=== PATIENT | female | born 1975 | race Caucasian/White ===

== ENCOUNTER 2016-09-18 12:42 | Emergency (ER) | payer MEDICAID, SELFPAY ==
[~2016-09-18] VITALS: Ht 165.1 cm; Wt 51.0 kg
[2016-09-18 13:01] VITALS: BP 121/75
[2016-09-18] MEDS ORDERED: HYDR50CA PO (13:07)
[2016-09-18] MEDS ORDERED: SERT25TA PO (13:07)
[2016-09-18 13:08] LABS: DAU SCREEN DISCLAIMER
[2016-09-18 13:15] LABS: HEMOGLOBIN 14.8 g/dL (11.7-16.4)
[2016-09-18 13:24] LABS: BLOOD UREA NITROGEN 19 mg/dL (7-18)
[2016-09-18 13:25] LABS: ACETAMINOPHEN < 2 mcg/mL (10-30)
== END 2016-09-18 14:00 | disposition home or self-care (01) ==
LOC: ED 13:13
DX: F41.1 Generalized anxiety disorder (principal); F32.9 Major depressive disorder, single episode, unspecified; F10.20 Alcohol dependence, uncomplicated
CPT/HCPCS: 36415; 80048; 80307; 80329; 82040; 85025; 99284; G0480

== ENCOUNTER 2017-07-20 15:29 | Emergency (ER) | payer MEDICAID ==
[~2017-07-20] VITALS: Ht 165.1 cm; Wt 57.9 kg
[~2017-07-20 15:29] MED LIST: HYDR50CA PO; SERT25TA PO
[2017-07-20] MEDS ORDERED: SODIUM CHLORIDE FLUSH 10ML SYR IVF ONE (16:00)
[2017-07-20] MEDS ORDERED: ONDANSETRON 2MG/ML, 2ML IVPush ONE (16:00)
[2017-07-20] MEDS ORDERED: SODIUM CHLORIDE 0.9% 1,000ML IVBOLUS ONE (16:00)
[2017-07-20] MEDS ORDERED: FAMOTIDINE 20 MG/2 ML IVP ONE (16:00)
[2017-07-20 16:07] LABS: MEAN CORPUSCULAR HGB CONC 33.9 g/dL (32.4-35.8); MEAN CORPUSCULAR VOLUME 94.3 fL (80-100); PLATELET COUNT 299 x10^3/uL (130-400); RED BLOOD COUNT 4.65 x10^6/uL (3.82-5.3); RED CELL DISTRIBUTION WIDTH 13.6 % (9.6-15.2)
[2017-07-20] MEDS ORDERED: FAMOTIDINE 20 MG/2 ML ONE (16:11)
[2017-07-20] MEDS ORDERED: MORPHINE SULFATE 4 MG/ML, 1ML ONE ×2 (16:11→17:15)
[2017-07-20] MEDS ORDERED: ONDANSETRON 2MG/ML, 2ML ONE (16:11)
[2017-07-20 16:19] LABS: ALANINE AMINOTRANSFERASE 20 U/L (12-78); ALBUMIN 4.2 g/dL (3.4-5.0); ANION GAP 11 mmol/L (5-15); CALCIUM 8.8 mg/dL (8.5-10.1); CHLORIDE 103 mmol/L (98-107); CREATININE 0.79 mg/dL (0.55-1.02)
[2017-07-20] MEDS: MORPHINE SULFATE 4 MG/ML, 1ML IVPush PRN ×2 (16:19→17:17)
[2017-07-20 16:21] LABS: ALKALINE PHOSPHATASE 57 U/L (45-117); BILIRUBIN,TOTAL 0.3 mg/dL (0.2-1.0); TOTAL PROTEIN 8.3 g/dL (6.4-8.2)
[2017-07-20 16:40] VITALS: BP 128/88
[2017-07-20 16:47] LABS: MD YES
[2017-07-20 16:51] LABS: BANDS%(MANUAL) 1 % (0-7); BASOS% (MANUAL) 1 % (0-1); EOS% (MANUAL) 1 % (1-7); LYMPH#(MANUAL) 3.82 x10^3/uL (1-3.4); LYMPHS% (MANUAL) 19 % (22-44); MONOS#(MANUAL) 1.41 x10^3/uL (0.3-2.7); MONOS% (MANUAL) 7 % (2-9); REACTIVE LYMPHS % (MANUAL) 2 % (0-0); SEG#(MANUAL) 13.87 x10^3/uL (1.8-6.8); SEGS% (MANUAL) 69 % (42-75)
[2017-07-20 16:52] LABS: <PLATELET ESTIMATE> ADEQUATE; <PLT MORPHOLOGY> NORMAL PLT MORPH; <RBC MORPHOLOGY> NORMAL
[2017-07-20 16:55] LABS: CULTURE INDICATED? YES; MICROSCOPIC INDICATED
[2017-07-20] MEDS ORDERED: morphine SULFATE 10 MG/ML, 1ML ONE (18:47)
[2017-07-20] MEDS ORDERED: MORPHINE SULFATE 4 MG/ML, 1ML IVPush PRN (19:00)
[2017-07-20] MEDS ORDERED: OMNIPAQUE 350 MG/ML, 150 ML BOTTLE ONE (19:46)
== END 2017-07-20 20:54 | disposition home or self-care (01) ==
LOC: ED 19:04
DX: K56.1 Intussusception (principal); Z90.710 Acquired absence of both cervix and uterus
CPT/HCPCS: 36415; 74177; 74250; 80053; 81001; 83690; 85025; 87077; 87086; 96361; 96374; 96375; 96376; 99285; J2405; J7030; Q9967; 87186; S0028

== ENCOUNTER 2017-08-09 14:43 | Inpatient (IN) | payer MEDICAID ==
[~2017-08-09] VITALS: Ht 165.1 cm; Wt 63.1 kg
[2017-08-09] MEDS ORDERED: SODIUM CHLORIDE 0.9% 1,000ML IVBOLUS ONE (15:00)
[2017-08-09] MEDS ORDERED: METOCLOPRAMIDE 5 MG/ML, 2ML IVPush ONE (15:00)
[2017-08-09] MEDS ORDERED: FAMOTIDINE 20 MG/2 ML IVP ONE (15:00)
[2017-08-09] MEDS ORDERED: MORPHINE SULFATE 4 MG/ML, 1ML IVPush PRN (15:00)
[2017-08-09] MEDS ORDERED: DIPHENHYDRAMINE 50 MG/ML, 1ML IVPush ONE (15:00)
[2017-08-09] MEDS ORDERED: SODIUM CHLORIDE FLUSH 10ML SYR IVF ONE (15:00)
[2017-08-09] MEDS ORDERED: DIPHENHYDRAMINE 50 MG/ML, 1ML ONE (15:18)
[2017-08-09] MEDS ORDERED: MORPHINE SULFATE 4 MG/ML, 1ML ONE (15:18)
[2017-08-09] MEDS ORDERED: FAMOTIDINE 20 MG/2 ML ONE (15:19)
[2017-08-09] MEDS ORDERED: METOCLOPRAMIDE 5 MG/ML, 2ML ONE (15:19)
[2017-08-09 15:24] LABS: BASOPHILS % (AUTO) 1 % (0-1); EOSINOPHILS # (AUTO) 0.25 x10^3/uL (0-0.4); EOSINOPHILS % (AUTO) 3 % (1-7); LYMPHOCYTES # (AUTO) 4.15 x10^3/uL (1-3.4); LYMPHOCYTES % (AUTO) 46 % (22-44); MD NO; MEAN CORPUSCULAR HEMOGLOBIN 32.3 pg (27.0-34.8); MEAN CORPUSCULAR HGB CONC 33.7 g/dL (32.4-35.8); MEAN CORPUSCULAR VOLUME 95.9 fL (80-100); MEAN PLATELET VOLUME 7.8 fL (7.4-10.4); MONOCYTES # (AUTO) 0.69 x10^3/uL (0.2-0.8); MONOCYTES % (AUTO) 8 % (2-9); NEUTROPHILS # (AUTO) 3.91 x10^3/uL (1.8-6.8); NEUTROPHILS % (AUTO) 43 % (42-75); PLATELET COUNT 379 x10^3/uL (130-400); RED BLOOD COUNT 4.56 x10^6/uL (3.82-5.3)
[2017-08-09 15:28] LABS: INTERNATIONAL NORMALIZED RATIO 0.96 (0.93-1.1); PROTHROMBIN TIME 9.9 Seconds (9.6-11.5)
[2017-08-09 15:32] LABS: ALBUMIN 4.2 g/dL (3.4-5.0); ANION GAP 7 mmol/L (5-15); CALCIUM 8.6 mg/dL (8.5-10.1); CHLORIDE 108 mmol/L (98-107)
[2017-08-09 15:34] LABS: AMPHETAMINE SCREEN, URINE Negative (Negative); BARBITURATE SCREEN, URINE Negative (Negative); BENZODIAZEPINE SCREEN, URINE Negative (Negative); CANNABINOID SCREEN, URINE Positive (Negative); COCAINE SCREEN, URINE Negative (Negative); METHADONE SCREEN, URINE Negative (Negative); OPIATE SCREEN, URINE Negative (Negative)
[2017-08-09 15:35] LABS: ALANINE AMINOTRANSFERASE 35 U/L (12-78); ALKALINE PHOSPHATASE 56 U/L (45-117); BILIRUBIN,TOTAL 0.2 mg/dL (0.2-1.0); CREATININE 0.82 mg/dL (0.55-1.02); TOTAL PROTEIN 7.8 g/dL (6.4-8.2)
[2017-08-09] MEDS ORDERED: OMNIPAQUE 350 MG/ML, 100ML BOTTLE ONE (16:19)
[2017-08-09] MEDS ORDERED: MIDAZOLAM 1 MG/ML, 2ML ONE ×2 (18:35→20:31)
[2017-08-09] MEDS ORDERED: FENTANYL PF 250 MCG/5ML ONE (18:36)
[2017-08-09 18:40] LABS: MICROSCOPIC NOT IND
[2017-08-09 18:47] LABS: CULTURE INDICATED? NO
[2017-08-09] MEDS ORDERED: MIDAZOLAM 1 MG/ML, 2ML IV PRN (19:00)
[2017-08-09] MEDS ORDERED: FENTANYL PF 100 MCG/2ML IV PRN (19:00)
[2017-08-09] MEDS ORDERED: OXYcodone 5 MG/5 ML ORAL.SOL UDC PO PRN (19:00)
[2017-08-09] MEDS ORDERED: DIAZEPAM 5 MG/ML, 2ML IVPush PRN (19:00)
[2017-08-09] MEDS ORDERED: ALBUTEROL/IPRATROPIUM 2.5MG/0.5MG, 3 ML NPPB PRN (19:00)
[2017-08-09] MEDS ORDERED: hydrALAzine 20 MG/ML, 1ML IV PRN (19:00)
[2017-08-09] MEDS ORDERED: MEPERIDINE/PF 25MG/0.5ML IVPush PRN (19:00)
[2017-08-09] MEDS ORDERED: PROMETHAZINE 25 MG/ML, 1ML IV PRN (19:00)
[2017-08-09] MEDS ORDERED: LABETALOL 5MG/ML, 20ML IV PRN (19:00)
[2017-08-09] MEDS ORDERED: ACETAMINOPHEN 325 MG TABLET PO PRN (19:00)
[2017-08-09] MEDS ORDERED: ONDANSETRON 2MG/ML, 2ML IVPush PRN (19:00)
[2017-08-09] MEDS ORDERED: DEXAMETHASONE 4 MG/ML, 1ML ONE (19:17)
[2017-08-09] MEDS ORDERED: CEFAZOLIN 1,000 MG ONE (19:17)
[2017-08-09] MEDS ORDERED: CEFOTETAN PMX 1GM/50ML 50 ML ONE (19:17)
[2017-08-09] MEDS ORDERED: PROPOFOL 10 MG/ML, 20ML ONE (19:17)
[2017-08-09] MEDS ORDERED: ROCURONIUM 10 MG/ML,10ML ONE (19:17)
[2017-08-09] MEDS ORDERED: GLYCOPYRROLATE 0.2MG/1ML, 5ML ONE (19:17)
[2017-08-09] MEDS ORDERED: NEOSTIGMINE 1 MG/ML, 10ML ONE (19:17)
[2017-08-09] MEDS ORDERED: ONDANSETRON 2MG/ML, 2ML ONE (19:17)
[2017-08-09] MEDS ORDERED: SUCCINYLCHOLINE 20 MG/ML, 10ML ONE (19:17)
[2017-08-09] MEDS ORDERED: HYDROmorphone 2 MG/ML, 1ML ONE ×2 (19:33→20:15)
[2017-08-09] MEDS ORDERED: KETOROLAC 30 MG/1 ML ONE (19:35)
[2017-08-09] MEDS ORDERED: ACETAMINOPHEN 650 MG/20.3 ML UDC ONE (20:03)
[2017-08-09] MEDS ORDERED: FENTANYL PF 100 MCG/2ML ONE (20:03)
[2017-08-09] MEDS ORDERED: OXYcodone 5 MG/5 ML ORAL.SOL UDC ONE (20:03)
[2017-08-09] MEDS: HYDROmorphone 1 MG/ML, 1ML IV PRN ×2 (20:19→20:28)
[2017-08-09] MEDS: D5%-0.45NACL+KCL 20MEQ 1,000 ML IV SCH (22:50)
[2017-08-09] MEDS: FAMOTIDINE 20 MG/2 ML IVPush SCH (22:50)
[2017-08-09 22:57] VITALS: BP 120/76
[2017-08-09] MEDS: POTASSIUM CHLORIDE 20 MEQ, MAGNESIUM SULFATE 1 GM, FOLIC ACID 1 MG, MVI ADULT 10 ML in ... IV SCH (23:30)
[2017-08-09] MEDS: THIAMINE MC SCH (23:45)
[2017-08-10 00:02] VITALS: BP 124/64
[2017-08-10] MEDS: ONDANSETRON 2MG/ML, 2ML IVPush PRN ×3 (03:58→15:36)
[2017-08-10 04:34] VITALS: BP 128/81
[2017-08-10] MEDS: D5%-0.45NACL+KCL 20MEQ 1,000 ML IV SCH ×3 (04:52→17:48)
[2017-08-10 05:23] LABS: MEAN CORPUSCULAR HEMOGLOBIN 32.8 pg (27.0-34.8); MEAN CORPUSCULAR HGB CONC 34.4 g/dL (32.4-35.8); MEAN CORPUSCULAR VOLUME 95.5 fL (80-100); PLATELET COUNT 325 x10^3/uL (130-400); RED BLOOD COUNT 3.97 x10^6/uL (3.82-5.3); RED CELL DISTRIBUTION WIDTH 14.1 % (9.6-15.2)
[2017-08-10 05:27] LABS: ANION GAP 9 mmol/L (5-15); CALCIUM 7.9 mg/dL (8.5-10.1); CHLORIDE 109 mmol/L (98-107)
[2017-08-10 05:29] LABS: CREATININE 0.92 mg/dL (0.55-1.02)
[2017-08-10 06:04] LABS: BASOPHILS # (AUTO) 0.05 x10^3/uL (0-0.1); BASOPHILS % (AUTO) 0 % (0-1); EOSINOPHILS % (AUTO) 0 % (1-7); LYMPHOCYTES # (AUTO) 0.66 x10^3/uL (1-3.4); LYMPHOCYTES % (AUTO) 3 % (22-44); MD SCAN; MONOCYTES # (AUTO) 0.98 x10^3/uL (0.2-0.8); MONOCYTES % (AUTO) 5 % (2-9); NEUTROPHILS # (AUTO) 19.13 x10^3/uL (1.8-6.8); NEUTROPHILS % (AUTO) 92 % (42-75)
[2017-08-10] MEDS: CEFOTETAN PMX 1GM/50ML 50 ML IVPB SCH ×2 (06:13→18:04)
[2017-08-10 08:08] VITALS: BP 109/73
[2017-08-10] MEDS: THIAMINE MC SCH ×3 (08:13→23:45)
[2017-08-10] MEDS: POTASSIUM CHLORIDE 20 MEQ, MAGNESIUM SULFATE 1 GM, FOLIC ACID 1 MG, MVI ADULT 10 ML in ... IV SCH (08:13)
[2017-08-10] MEDS: FAMOTIDINE 20 MG/2 ML IVPush SCH ×2 (08:14→20:45)
[2017-08-10] MEDS: NICOTINE 14MG/24 HR PATCH.TD24 TD SCH (08:33)
[2017-08-10 13:53] VITALS: BP 135/74
[2017-08-10 20:15] VITALS: BP 116/80
[2017-08-10] MEDS ORDERED: LOPERAMIDE 2 MG CAPSULE PO ONE (22:30)
[2017-08-11] MEDS: D5%-0.45NACL+KCL 20MEQ 1,000 ML IV SCH ×4 (00:09→23:08)
[2017-08-11 02:24] VITALS: BP 111/78
[2017-08-11 05:07] LABS: BASOPHILS # (AUTO) 0.03 x10^3/uL (0-0.1); BASOPHILS % (AUTO) 0 % (0-1); EOSINOPHILS # (AUTO) 0.07 x10^3/uL (0-0.4); EOSINOPHILS % (AUTO) 1 % (1-7); LYMPHOCYTES # (AUTO) 1.73 x10^3/uL (1-3.4); LYMPHOCYTES % (AUTO) 17 % (22-44); MD NO; MEAN CORPUSCULAR HEMOGLOBIN 32.2 pg (27.0-34.8); MEAN CORPUSCULAR HGB CONC 33.8 g/dL (32.4-35.8); MEAN CORPUSCULAR VOLUME 95.3 fL (80-100); MEAN PLATELET VOLUME 8.2 fL (7.4-10.4); MONOCYTES # (AUTO) 0.48 x10^3/uL (0.2-0.8); MONOCYTES % (AUTO) 5 % (2-9); NEUTROPHILS # (AUTO) 7.68 x10^3/uL (1.8-6.8); NEUTROPHILS % (AUTO) 77 % (42-75); PLATELET COUNT 253 x10^3/uL (130-400); RED BLOOD COUNT 3.58 x10^6/uL (3.82-5.3)
[2017-08-11] MEDS: POTASSIUM CHLORIDE 20 MEQ, MAGNESIUM SULFATE 1 GM, FOLIC ACID 1 MG, MVI ADULT 10 ML in ... IV SCH (06:40)
[2017-08-11 07:23] VITALS: BP 127/78
[2017-08-11] MEDS: THIAMINE MC SCH ×3 (08:33→23:45)
[2017-08-11] MEDS: FAMOTIDINE 20 MG/2 ML IVPush SCH ×2 (08:38→20:28)
[2017-08-11] MEDS: NICOTINE 14MG/24 HR PATCH.TD24 TD SCH (08:38)
[2017-08-11] MEDS: ONDANSETRON 2MG/ML, 2ML IVPush PRN ×2 (11:29→21:21)
[2017-08-11 13:15] VITALS: BP 112/77
[2017-08-11 20:15] VITALS: BP 120/75
[2017-08-12 00:39] VITALS: BP 100/66
[2017-08-12] MEDS: D5%-0.45NACL+KCL 20MEQ 1,000 ML IV SCH ×3 (04:40→19:57)
[2017-08-12] MEDS: POTASSIUM CHLORIDE 20 MEQ, MAGNESIUM SULFATE 1 GM, FOLIC ACID 1 MG, MVI ADULT 10 ML in ... IV SCH (05:22)
[2017-08-12] MEDS: THIAMINE MC SCH ×3 (07:42→23:45)
[2017-08-12] MEDS: ONDANSETRON 2MG/ML, 2ML IVPush PRN (08:27)
[2017-08-12] MEDS: FAMOTIDINE 20 MG/2 ML IVPush SCH ×2 (09:00→22:01)
[2017-08-12] MEDS: NICOTINE 14MG/24 HR PATCH.TD24 TD SCH (09:00)
[2017-08-12 09:11] VITALS: BP 95/62
[2017-08-12 13:24] VITALS: BP 109/57
[2017-08-12] MEDS: OXYcodone/APAP 7.5/325MG TABLET PO PRN ×4 (16:00→23:48)
[2017-08-12 20:23] VITALS: BP 107/73
[2017-08-13 00:53] VITALS: BP 114/72
[2017-08-13] MEDS: OXYcodone/APAP 7.5/325MG TABLET PO PRN ×4 (05:42→23:40)
[2017-08-13] MEDS: THIAMINE MC SCH ×3 (07:45→20:51)
[2017-08-13 07:52] VITALS: BP 96/64
[2017-08-13] MEDS: FAMOTIDINE 20 MG/2 ML IVPush SCH (09:14)
[2017-08-13] MEDS: NICOTINE 14MG/24 HR PATCH.TD24 TD SCH (09:14)
[2017-08-13] MEDS: D5%-0.45NACL+KCL 20MEQ 1,000 ML IV SCH (09:38)
[2017-08-13 13:23] VITALS: BP 102/66
[2017-08-13 18:46] VITALS: BP 109/71
[2017-08-13] MEDS ORDERED: FAMOTIDINE 20 MG TABLET PO ONE (21:00)
[2017-08-14 02:40] VITALS: BP 102/65
[2017-08-14] MEDS: OXYcodone/APAP 7.5/325MG TABLET PO PRN (05:26)
[2017-08-14] MEDS: THIAMINE MC SCH (07:16)
[2017-08-14 08:33] VITALS: BP 111/67
[2017-08-14] MEDS: NICOTINE 14MG/24 HR PATCH.TD24 TD SCH (09:12)
[2017-08-14] MEDS ORDERED: NICO-486 TD (10:06)
[2017-08-14] MEDS ORDERED: OXYC-306 PO (10:06)
[2017-08-14] MEDS ORDERED: FAMO10TA31 PO (10:07)
== END 2017-08-14 10:40 | disposition home or self-care (01) | DRG 342 ==
LOC: ED 16:26 → EDIP 18:07 → 4NOR 21:48 → DCLOUNGE 08-14 10:24
PROVIDERS: ADMIT Surgery; ATTEND Surgery
PROC: 0DBA0ZX Excision of Jejunum, Open Approach, Diagnostic (ICD-10-PCS; 2017-08-09)
PROC: 0DTJ0ZZ Resection of Appendix, Open Approach (ICD-10-PCS; principal; 2017-08-09 18:30)
DX: R10.0 Acute abdomen (principal); J98.11 Atelectasis; F12.90 Cannabis use, unspecified, uncomplicated; R63.4 Abnormal weight loss; F17.210 Nicotine dependence, cigarettes, uncomplicated; Z85.43 Personal history of malignant neoplasm of ovary; Z87.11 Personal history of peptic ulcer disease; Z90.710 Acquired absence of both cervix and uterus; Z68.23 Body mass index [BMI] 23.0-23.9, adult
CPT/HCPCS: 36415; 71045; 74177; 80048; 80053; 80307; 81003; 83605; 83690; 85025; 85610; 85730; 88304; 88305; 96374; 96375; J0690; J1100; J1170; J1885; J2250; J2270; J2405; J2704; J2710; J3010; J3475; J3480; J3490; Q9967; C1765; J0330; J1200; J2765; J7030; J7121; S0028; S0074

== ENCOUNTER 2017-10-29 16:41 | Emergency (ER) | payer MEDICAID ==
[~2017-10-29] VITALS: Ht 165.1 cm; Wt 56.7 kg
[~2017-10-29 16:41] MED LIST changes: +FAMO10TA31 PO; +NICO-486 TD; +OXYC-306 PO
[2017-10-29] MEDS ORDERED: SODIUM CHLORIDE 0.9% 1,000ML IVBOLUS ONE (17:00)
[2017-10-29] MEDS ORDERED: ONDANSETRON 2MG/ML, 2ML IVPush ONE (17:00)
[2017-10-29] MEDS ORDERED: MAALOX/HYOSCYAMINE/LIDOCAINE 45 ML BTL PO ONE (17:00)
[2017-10-29] MEDS ORDERED: FAMOTIDINE 20 MG/2 ML IVP ONE (17:00)
[2017-10-29] MEDS ORDERED: SODIUM CHLORIDE FLUSH 10ML SYR IVF ONE (17:00)
[2017-10-29 17:52] LABS: BASOPHILS # (AUTO) 0.14 x10^3/uL (0-0.1); BASOPHILS % (AUTO) 1 % (0-1); EOSINOPHILS # (AUTO) 0.23 x10^3/uL (0-0.4); EOSINOPHILS % (AUTO) 2 % (1-7); LYMPHOCYTES # (AUTO) 2.51 x10^3/uL (1-3.4); LYMPHOCYTES % (AUTO) 22 % (22-44); MD NO; MEAN CORPUSCULAR HEMOGLOBIN 31.2 pg (27.0-34.8); MEAN CORPUSCULAR HGB CONC 33.7 g/dL (32.4-35.8); MEAN CORPUSCULAR VOLUME 92.6 fL (80-100); MEAN PLATELET VOLUME 8.7 fL (7.4-10.4); MONOCYTES # (AUTO) 0.58 x10^3/uL (0.2-0.8); MONOCYTES % (AUTO) 5 % (2-9); NEUTROPHILS # (AUTO) 7.88 x10^3/uL (1.8-6.8); NEUTROPHILS % (AUTO) 70 % (42-75); PLATELET COUNT 289 x10^3/uL (130-400); RED CELL DISTRIBUTION WIDTH 13.5 % (9.6-15.2)
[2017-10-29 18:03] LABS: ALBUMIN 3.9 g/dL (3.4-5.0); ANION GAP 6 mmol/L (5-15); CALCIUM 9.3 mg/dL (8.5-10.1); CHLORIDE 108 mmol/L (98-107)
[2017-10-29 18:05] LABS: MICROSCOPIC NOT IND
[2017-10-29 18:06] LABS: ALANINE AMINOTRANSFERASE 16 U/L (12-78); ALKALINE PHOSPHATASE 42 U/L (45-117); BILIRUBIN,TOTAL 0.5 mg/dL (0.2-1.0); CREATININE 0.91 mg/dL (0.55-1.02); TOTAL PROTEIN 7.5 g/dL (6.4-8.2)
[2017-10-29 18:16] LABS: CULTURE INDICATED? NO
[2017-10-29] MEDS ORDERED: MAALOX/HYOSCYAMINE/LIDOCAINE 45 ML BTL ONE (18:22)
[2017-10-29] MEDS ORDERED: ONDANSETRON ODT 4 MG ONE (18:22)
[2017-10-29] MEDS ORDERED: PANTOPRAZOLE 40 MG IV ONE (18:22)
[2017-10-29] MEDS ORDERED: MORPHINE SULFATE 4 MG/ML, 1ML ONE (18:22)
[2017-10-29] MEDS ORDERED: ONDANSETRON ODT 4 MG PO ONE (18:30)
[2017-10-29] MEDS ORDERED: MORPHINE SULFATE 4 MG/ML, 1ML IVPush ONE (18:30)
[2017-10-29] MEDS ORDERED: OMNIPAQUE 350 MG/ML, 100ML BOTTLE ONE (18:41)
[2017-10-29 19:48] VITALS: BP 107/64
[2017-10-30] MEDS ORDERED: PANTOPRAZOLE 40 MG IV IVPush SCH (09:00)
== END 2017-10-29 20:13 | disposition home or self-care (01) ==
LOC: ED 18:16
DX: K27.3 Acute peptic ulcer, site unspecified, without hemorrhage or perforation (principal); Z90.710 Acquired absence of both cervix and uterus; F17.200 Nicotine dependence, unspecified, uncomplicated
CPT/HCPCS: 36415; 74021; 74177; 80053; 81003; 83690; 85025; 96361; 96374; 96375; 99285; C9113; J7030; Q0162; Q9967

== ENCOUNTER 2017-12-15 12:07 | Emergency (ER) | payer MEDICAID ==
[~2017-12-15] VITALS: Ht 165.1 cm; Wt 52.6 kg
[2017-12-15 12:13] VITALS: BP 146/94
[2017-12-15] MEDS ORDERED: KETOROLAC 30 MG/1 ML IM ONE (12:30)
[2017-12-15] MEDS ORDERED: KETOROLAC 30 MG/1 ML ONE (12:40)
[2017-12-15 13:35] LABS: MICROSCOPIC NOT IND
[2017-12-15 13:39] LABS: CULTURE INDICATED? NO
== END 2017-12-15 14:02 | disposition home or self-care (01) ==
LOC: ED 13:56
DX: S22.41XA Multiple fractures of ribs, right side, initial encounter for closed fracture (principal); F10.20 Alcohol dependence, uncomplicated; F17.200 Nicotine dependence, unspecified, uncomplicated; Z90.710 Acquired absence of both cervix and uterus; Z90.89 Acquired absence of other organs; W17.89XA Other fall from one level to another, initial encounter; Y93.89 Activity, other specified; Y92.098 Other place in other non-institutional residence as the place of occurrence of the external cause; Y99.8 Other external cause status
CPT/HCPCS: 81003; 99285

== ENCOUNTER 2018-01-19 00:52 | Emergency (ER) | payer MEDICAID ==
[~2018-01-19] VITALS: Ht 165.1 cm; Wt 60.0 kg
[2018-01-19] MEDS ORDERED: LIDOCAINE-MPF 1%, 2ML INFIL ONE (01:30)
[2018-01-19 01:40] LABS: BASOPHILS # (AUTO) 0.05 x10^3/uL (0-0.1); BASOPHILS % (AUTO) 1 % (0-1); EOSINOPHILS # (AUTO) 0.17 x10^3/uL (0-0.4); EOSINOPHILS % (AUTO) 2 % (1-7); LYMPHOCYTES # (AUTO) 2.19 x10^3/uL (1-3.4); LYMPHOCYTES % (AUTO) 23 % (22-44); MD NO; MEAN CORPUSCULAR HEMOGLOBIN 31.6 pg (27.0-34.8); MEAN CORPUSCULAR HGB CONC 34.2 g/dL (32.4-35.8); MEAN CORPUSCULAR VOLUME 92.4 fL (80-100); MONOCYTES # (AUTO) 0.39 x10^3/uL (0.2-0.8); MONOCYTES % (AUTO) 4 % (2-9); NEUTROPHILS # (AUTO) 6.77 x10^3/uL (1.8-6.8); NEUTROPHILS % (AUTO) 71 % (42-75); PLATELET COUNT 312 x10^3/uL (130-400); RED BLOOD COUNT 4.08 x10^6/uL (3.82-5.3); RED CELL DISTRIBUTION WIDTH 13.9 % (9.6-15.2)
[2018-01-19] MEDS ORDERED: LIDOCAINE-MPF 1%, 2ML ONE (01:41)
[2018-01-19 01:53] LABS: ALANINE AMINOTRANSFERASE 19 U/L (12-78); ANION GAP 7 mmol/L (5-15); CALCIUM 8.7 mg/dL (8.5-10.1); CHLORIDE 111 mmol/L (98-107); CREATININE 0.91 mg/dL (0.55-1.02); SALICYLATE LEVEL 4.6 mg/dL (2.8-20.0)
[2018-01-19 01:55] LABS: ALKALINE PHOSPHATASE 47 U/L (45-117); BILIRUBIN,TOTAL 0.1 mg/dL (0.2-1.0); TOTAL PROTEIN 7.6 g/dL (6.4-8.2)
[2018-01-19 01:58] LABS: ACETAMINOPHEN < 2 mcg/mL (10-30)
[2018-01-19] MEDS ORDERED: BACITRACIN ZINC OINT 500U/GM, 0.9 GM ONE (02:01)
[2018-01-19 05:19] LABS: AMPHETAMINE SCREEN, URINE Negative (Negative); BARBITURATE SCREEN, URINE Negative (Negative); BENZODIAZEPINE SCREEN, URINE Negative (Negative); CANNABINOID SCREEN, URINE Positive (Negative); COCAINE SCREEN, URINE Negative (Negative); METHADONE SCREEN, URINE Negative (Negative); OPIATE SCREEN, URINE Negative (Negative)
[2018-01-19] MEDS ORDERED: ONDANSETRON ODT 4 MG ONE (08:57)
[2018-01-19] MEDS ORDERED: ONDANSETRON ODT 4 MG PO ONE (09:00)
[2018-01-19 09:49] VITALS: BP 131/85
== END 2018-01-19 09:51 | disposition home or self-care (01) ==
LOC: ED 01:06
DX: S51.811A Laceration without foreign body of right forearm, initial encounter (principal); S51.812A Laceration without foreign body of left forearm, initial encounter; S41.111A Laceration without foreign body of right upper arm, initial encounter; F41.1 Generalized anxiety disorder; F17.200 Nicotine dependence, unspecified, uncomplicated; Z90.89 Acquired absence of other organs; X78.8XXA Intentional self-harm by other sharp object, initial encounter; Y93.89 Activity, other specified; Y99.8 Other external cause status; Y92.89 Other specified places as the place of occurrence of the external cause
CPT/HCPCS: 12031; 36415; 80053; 80307; 80329; 85025; 99284; Q0162; G0480

== ENCOUNTER 2018-04-25 16:00 | Emergency (ER) | payer MEDICAID ==
[~2018-04-25] VITALS: Ht 165.1 cm; Wt 53.6 kg
[2018-04-25 16:04] VITALS: BP 104/77
[2018-04-25] MEDS ORDERED: CEFTRIAXONE 250 MG IM ONE (16:30)
[2018-04-25] MEDS ORDERED: OXYcodone/APAP 5/325MG TABLET PO ONE (16:30)
[2018-04-25] MEDS ORDERED: AZITHROMYCIN 500 MG TABLET PO ONE (16:30)
[2018-04-25] MEDS ORDERED: KETOROLAC 30 MG/1 ML IM ONE (16:30)
[2018-04-25] MEDS ORDERED: KETOROLAC 30 MG/1 ML ONE (16:43)
[2018-04-25] MEDS ORDERED: OXYcodone/APAP 5/325MG TABLET ONE (16:43)
[2018-04-25] MEDS ORDERED: AZITHROMYCIN 500 MG TABLET ONE (16:43)
[2018-04-25] MEDS ORDERED: CEFTRIAXONE 250 MG ONE (16:43)
[2018-04-25 17:17] LABS: CLUE CELLS PRESENT (NONE SEEN); WET PREP WBCS FEW (FEW)
== END 2018-04-25 17:27 | disposition home or self-care (01) ==
LOC: ED 17:14
DX: N76.2 Acute vulvitis (principal)
CPT/HCPCS: 87210; 87491; 87591; 87808; 96372; 99284; J0696; J1885

== ENCOUNTER 2018-05-13 21:20 | Emergency (ER) | payer MEDICAID ==
[~2018-05-13] VITALS: Ht 165.1 cm; Wt 53.7 kg
[2018-05-13] MEDS ORDERED: HYDROcodone/APAP 5/325 TABLET ONE ×2 (21:41→22:51)
[2018-05-13] MEDS ORDERED: IBUPROFEN 200 MG TABLET ONE (22:23)
[2018-05-13] MEDS ORDERED: IBUPROFEN 200 MG TABLET PO ONE (22:30)
[2018-05-13] MEDS ORDERED: HYDROcodone/APAP 5/325 TABLET PO ONE ×2 (22:30→23:00)
[2018-05-13] MEDS ORDERED: BACITRACIN ZINC OINT 500U/GM, 0.9 GM ONE (23:05)
[2018-05-13 23:24] VITALS: BP 128/71
== END 2018-05-13 23:26 | disposition home or self-care (01) ==
LOC: ED 21:44
DX: S91.332A Puncture wound without foreign body, left foot, initial encounter (principal); X50.9XXA Other and unspecified overexertion or strenuous movements or postures, initial encounter; Y93.39 Activity, other involving climbing, rappelling and jumping off; Y92.009 Unspecified place in unspecified non-institutional (private) residence as the place of occurrence of the external cause; Y99.8 Other external cause status
CPT/HCPCS: 99283

== ENCOUNTER 2018-05-16 13:56 | Emergency (ER) | payer MEDICAID ==
[~2018-05-16] VITALS: Ht 165.1 cm; Wt 54.0 kg
[2018-05-16] MEDS ORDERED: PLEASE ENTER HEIGHT AND WEIGHT MC SCH (14:10)
[2018-05-16 14:12] VITALS: BP 112/80
[2018-05-16] MEDS ORDERED: DIPH,PERTUSS(ACELL),TET VAC/PF 0.5 ML IM-VACC ONE (14:30)
[2018-05-16 14:34] LABS: BASOPHILS # (AUTO) 0.07 x10^3/uL (0-0.1); BASOPHILS % (AUTO) 1 % (0-1); EOSINOPHILS # (AUTO) 0.09 x10^3/uL (0-0.4); EOSINOPHILS % (AUTO) 1 % (1-7); LYMPHOCYTES # (AUTO) 3.24 x10^3/uL (1-3.4); LYMPHOCYTES % (AUTO) 31 % (22-44); MD NO; MEAN CORPUSCULAR HEMOGLOBIN 31.3 pg (27.0-34.8); MEAN CORPUSCULAR HGB CONC 34.2 g/dL (32.4-35.8); MEAN CORPUSCULAR VOLUME 91.3 fL (80-100); MEAN PLATELET VOLUME 8.4 fL (7.4-10.4); MONOCYTES # (AUTO) 0.63 x10^3/uL (0.2-0.8); MONOCYTES % (AUTO) 6 % (2-9); NEUTROPHILS # (AUTO) 6.49 x10^3/uL (1.8-6.8); NEUTROPHILS % (AUTO) 62 % (42-75); PLATELET COUNT 298 x10^3/uL (130-400); RED BLOOD COUNT 4.43 x10^6/uL (3.82-5.3); RED CELL DISTRIBUTION WIDTH 14.9 % (9.6-15.2)
[2018-05-16 14:40] LABS: ALANINE AMINOTRANSFERASE 27 U/L (12-78); ANION GAP 11 mmol/L (5-15); CHLORIDE 112 mmol/L (98-107); CREATININE 0.77 mg/dL (0.55-1.02)
[2018-05-16 14:44] LABS: ALKALINE PHOSPHATASE 38 U/L (45-117); BILIRUBIN,TOTAL 0.1 mg/dL (0.2-1.0); SALICYLATE LEVEL 3.9 mg/dL (2.8-20.0)
[2018-05-16 14:46] LABS: ACETAMINOPHEN < 2 mcg/mL (10-30)
== END 2018-05-16 18:27 | disposition left against medical advice (07) ==
LOC: ED 14:29
DX: S51.811A Laceration without foreign body of right forearm, initial encounter (principal); F10.129 Alcohol abuse with intoxication, unspecified; R45.851 Suicidal ideations; F17.200 Nicotine dependence, unspecified, uncomplicated; X58.XXXA Exposure to other specified factors, initial encounter; Y93.89 Activity, other specified; Y92.89 Other specified places as the place of occurrence of the external cause; Y99.8 Other external cause status
CPT/HCPCS: 12032; 36415; 80053; 80307; 80329; 84703; 85025; 99284; G0480

== ENCOUNTER 2019-07-14 13:17 | Emergency (ER) | payer MEDICAID ==
[~2019-07-14] VITALS: Ht 165.1 cm; Wt 60.0 kg
--- NOTE | 2019-07-14 14:12 | NUR ---
PT EASILY ROUSABLE, ALERT AND ORIENTED. PLACED ON 2L O2 WHILE SLEEPING. DENIES ANY ABNORMAL S/S OR COMPLAINTS OF ANY KIND. ERP AT BEDSIDE. CALL LIGHT IN REACH.
[2019-07-14 14:41] LABS: BASOPHILS # (AUTO) 0.05 x10^3/uL (0-0.1); BASOPHILS % (AUTO) 1 % (0-1); EOSINOPHILS # (AUTO) 0.09 x10^3/uL (0-0.4); EOSINOPHILS % (AUTO) 1 % (1-7); LYMPHOCYTES # (AUTO) 2.89 x10^3/uL (1-3.4); LYMPHOCYTES % (AUTO) 41 % (22-44); MD NO; MEAN CORPUSCULAR HEMOGLOBIN 30.6 pg (27.0-34.8); MEAN CORPUSCULAR HGB CONC 33.2 g/dL (32.4-35.8); MEAN CORPUSCULAR VOLUME 92.1 fL (80-100); MONOCYTES # (AUTO) 0.49 x10^3/uL (0.2-0.8); MONOCYTES % (AUTO) 7 % (2-9); NEUTROPHILS # (AUTO) 3.61 x10^3/uL (1.8-6.8); NEUTROPHILS % (AUTO) 51 % (42-75); PLATELET COUNT 303 x10^3/uL (130-400); RED BLOOD COUNT 4.76 x10^6/uL (3.82-5.3); RED CELL DISTRIBUTION WIDTH 14.1 % (9.6-15.2)
[2019-07-14 14:52] LABS: ALBUMIN 3.9 g/dL (3.4-5.0); ANION GAP 8 mmol/L (5-15); CALCIUM 8.3 mg/dL (8.5-10.1); CHLORIDE 111 mmol/L (98-107); SALICYLATE LEVEL 5.4 mg/dL (2.8-20.0)
[2019-07-14 14:59] LABS: ALANINE AMINOTRANSFERASE 31 U/L (12-78); ALKALINE PHOSPHATASE 55 U/L (45-117); BILIRUBIN,TOTAL 0.2 mg/dL (0.2-1.0); CREATININE 0.81 mg/dL (0.55-1.02); TOTAL PROTEIN 7.8 g/dL (6.4-8.2)
[2019-07-14 15:10] VITALS: BP 118/75
--- NOTE | 2019-07-14 15:10 | NUR ---
REPORT TO LYNDSAY MCKEE.
--- NOTE | 2019-07-14 15:51 | NUR ---
PT RESTING IN BED, CALL LIGHT IN REACH.
--- NOTE | 2019-07-14 17:41 | NUR ---
URINE COLLECTED. PT RESTING IN BES, CALL LIGHT IN REACH
[2019-07-14 18:01] LABS: AMPHETAMINE SCREEN, URINE Negative (Negative); BARBITURATE SCREEN, URINE Negative (Negative); BENZODIAZEPINE SCREEN, URINE Negative (Negative); CANNABINOID SCREEN, URINE Positive (Negative); COCAINE SCREEN, URINE Negative (Negative); METHADONE SCREEN, URINE Negative (Negative); OPIATE SCREEN, URINE Negative (Negative)
--- NOTE | 2019-07-14 18:17 | NUR ---
DICHARGE INSTRUCTIONS REVIEWED
== END 2019-07-14 18:22 | disposition home or self-care (01) ==
LOC: ED 18:10
DX: T42.6X1A Poisoning by other antiepileptic and sedative-hypnotic drugs, accidental (unintentional), initial encounter (principal); F10.120 Alcohol abuse with intoxication, uncomplicated; Y90.9 Presence of alcohol in blood, level not specified; Y92.89 Other specified places as the place of occurrence of the external cause
CPT/HCPCS: 36415; 80053; 80307; 84703; 85025; 93005; 99284

== ENCOUNTER 2020-07-31 15:06 | Emergency (ER) | payer MEDICAID ==
[~2020-07-31] VITALS: Ht 165.1 cm; Wt 59.1 kg
[~2020-07-31 15:06] MED LIST changes: -OXYC-306 PO; +OXYC1TAB17 PO
[2020-07-31 15:52] LABS: BASOPHILS % (AUTO) 1 % (0-1); EOSINOPHILS % (AUTO) 3 % (1-7); LYMPHOCYTES % (AUTO) 24 % (22-44); MEAN CORPUSCULAR HEMOGLOBIN 30.8 pg (27.0-34.8); MEAN CORPUSCULAR HGB CONC 33.2 g/dL (32.4-35.8); MONOCYTES % (AUTO) 5 % (2-9); NEUTROPHILS % (AUTO) 67 % (42-75); PLATELET COUNT 265 x10^3/uL (130-400); RED BLOOD COUNT 3.84 x10^6/uL (3.82-5.3); RED CELL DISTRIBUTION WIDTH 13.7 % (9.6-15.2)
[2020-07-31 15:58] LABS: MD NO
[2020-07-31 16:02] LABS: ANION GAP 5 mmol/L (5-15); CALCIUM 8.7 mg/dL (8.5-10.1); CHLORIDE 104 mmol/L (98-107); CREATININE 0.86 mg/dL (0.55-1.02)
--- NOTE | 2020-07-31 16:11 | NUR ---
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 Pt A/O X 4, pain and drainage in R ear. Pt to CT.
--- NOTE | 2020-07-31 16:43 | NUR ---
Pt states VERGARA. ERP made aware.
[2020-07-31] MEDS ORDERED: ACETAMINOPHEN 325 MG TABLET ONE (16:44)
[2020-07-31] MEDS ORDERED: ACETAMINOPHEN 650 MG/20.3 ML UDC ONE (16:47)
[2020-07-31] MEDS ORDERED: ACETAMINOPHEN 650 MG/20.3 ML UDC PO ONE (17:00)
[2020-07-31 17:56] VITALS: BP 114/77
== END 2020-07-31 18:19 | disposition home or self-care (01) ==
LOC: ED 18:05
DX: S02.19XB Other fracture of base of skull, initial encounter for open fracture (principal); R55 Syncope and collapse; R56.9 Unspecified convulsions; H92.01 Otalgia, right ear; F17.200 Nicotine dependence, unspecified, uncomplicated; Z90.89 Acquired absence of other organs; Z90.710 Acquired absence of both cervix and uterus; X58.XXXA Exposure to other specified factors, initial encounter; Y93.89 Activity, other specified; Y92.89 Other specified places as the place of occurrence of the external cause; Y99.8 Other external cause status
CPT/HCPCS: 36415; 70450; 70480; 80048; 82040; 85025; 99285

== ENCOUNTER 2021-01-21 12:21 | Emergency (ER) | payer MEDICAID ==
[~2021-01-21] VITALS: Ht 165.1 cm; Wt 55.0 kg
[2021-01-21] MEDS ORDERED: SODIUM CHLORIDE 0.9% 1,000 ML IV ONE (13:00)
[2021-01-21] MEDS ORDERED: SODIUM CHLORIDE FLUSH 10ML SYR IVF ONE (13:00)
[2021-01-21] MEDS ORDERED: SODIUM CHLORIDE 0.9% 1,000ML IVBOLUS ONE (13:00)
[2021-01-21] MEDS ORDERED: ONDANSETRON 2MG/ML, 2ML IVPush ONE (13:00)
[2021-01-21 13:07] LABS: BASOPHILS % (AUTO) 3 % (0-1); EOSINOPHILS % (AUTO) 2 % (1-7); LYMPHOCYTES % (AUTO) 53 % (22-44); MEAN CORPUSCULAR HEMOGLOBIN 32.7 pg (27.0-34.8); MEAN CORPUSCULAR HGB CONC 34.4 g/dL (32.4-35.8); MEAN PLATELET VOLUME 7.3 fL (7.4-10.4); MONOCYTES % (AUTO) 10 % (2-9); NEUTROPHILS % (AUTO) 33 % (42-75); PLATELET COUNT 135 x10^3/uL (130-400); RED BLOOD COUNT 3.82 x10^6/uL (3.82-5.3); RED CELL DISTRIBUTION WIDTH 14.9 % (9.6-15.2)
[2021-01-21 13:18] LABS: ANION GAP 12 mmol/L (5-15); CALCIUM 7.9 mg/dL (8.5-10.1); CHLORIDE 100 mmol/L (98-107)
--- NOTE | 2021-01-21 13:31 | NUR ---
PT STATED SHE HAS BEEN HERE FOR HOURS AND HAS NOT HAD ANY TREATENT. THIS RN INFORMED PT THAT I AM HERE TO GET TREATMENT STARTED. ORDERED FLUIDS STARTED THROUGH IV STARTED BY PARAEDICS. WHEN ASKING PT QUESTIONS FOR CLINICAL SCREEN AND PHYSICAL ASSESSMENT, PT STATED, "I'VE ALREADY SAID ALL OF THIS 7 TIMES". EXPLAINED TO PT THAT I'M THE RN WHO WILL BE CHARTING THE INFORMATION. PT STATED, "I'VE ALREADY TOLD THE EKG LADY, ANOTHER LADY WITH A COMPUTER, THE PARAMEDICS AND THE DOCTOR. SO I'M JUST GOING TO TELL YOU , YA YA YA TO ALL YOUR QUESTIONS." PT REFUSING TO PUT ON GOWN, STATED, "I'M JUST GOING TO WEAR MY [facility], [facility]
[2021-01-21 13:33] LABS: ALANINE AMINOTRANSFERASE 153 U/L (12-78); ALBUMIN 3.4 g/dL (3.4-5.0); ALKALINE PHOSPHATASE 79 U/L (45-117); BILIRUBIN,TOTAL 0.3 mg/dL (0.2-1.0); CREATININE 0.56 mg/dL (0.55-1.02); TOTAL PROTEIN 7.8 g/dL (6.4-8.2)
--- NOTE | 2021-01-21 14:45 | NUR ---
break RN: assumed care of pt on behalf of primary RN for lunch break only. pt resting on her side in position of comfort with her eyes closed. asked pt if she is able to give a urine sample at this time. pt states no. attempted to update pt on POC. pt made aware that urine sample needed. urine specimen cup given. when attempted to educate pt on location of bathroom, pt begins yelling that she doesn;t like her room. "Why is the fucking door to the bathroom shut?" attempting to explain COVID precautions in place, pt states "no one is doing anything for me!" attempted to administer NS per order. pt refuses at this time. attempted to offer zofran per orders. pt refuses
--- NOTE | 2021-01-21 14:50 | NUR ---
break RN: pt states "you aren't helping me!" I had to beg for the insulin!" pt states "you told me you were gong to give me saline and you lied!" remonded patient that NS was offered and that she had refused administration. offered NS again and patient now agrees to IV infusion IV infusion initiated per order. offered Zofran again, pt now agrees to Zofran administration
--- NOTE | 2021-01-21 15:00 | NUR ---
break RN: during Zofan administration, pt continues swearing and states "no one is fucking doing anything for me!" attempted to discuss POC and pt states "don't fucking talk to me! I don't need you to fucking talk to me!" attemtping to calm pt and pt continues yelling at this RN. report to Molly UMANA
[2021-01-21] MEDS ORDERED: ONDANSETRON 2MG/ML, 2ML ONE (15:01)
--- NOTE | 2021-01-21 16:25 | NUR ---
PT PROVIDED URINE SAMPLE. URINE WALKED TO LAB. PT STATED SHE VOIDED AND POOPED IN THE TRASH CAN. WILL CONTINUE TO MONITOR.
[2021-01-21 16:29] LABS: MICROSCOPIC NOT IND
--- NOTE | 2021-01-21 17:33 | NUR ---
DOG LICENSER: ASSUMED CARE FOR DISCHARGE ONLY: TAXI CAB GIVEN, PT HAS BEEN "KICKED OUT OF HOUSING, HAS MONEY FOR NEW [employer]". TIAN SW IN ROOM FOR ASSISTANCE. Patient/Caregiver given discharge instructions and they have confirmed that they understand the instructions. Patient ambulatory with steady gait. NAD, all questions answered appropriately, denies additional needs at this time. No personal belongings left in room after discharge.
[2021-01-21 17:34] VITALS: BP 110/68
== END 2021-01-21 17:35 | disposition home or self-care (01) ==
LOC: ED 13:56
DX: F10.10 Alcohol abuse, uncomplicated (principal); R11.2 Nausea with vomiting, unspecified; R94.31 Abnormal electrocardiogram [ECG] [EKG]; F17.200 Nicotine dependence, unspecified, uncomplicated; Y90.0 Blood alcohol level of less than 20 mg/100 ml
CPT/HCPCS: 36415; 80053; 80320; 81003; 83690; 85025; 93005; 96361; 96374; 99284; J2405; J7030; G0480